=== PATIENT | female | born 1960 | race Caucasian/White ===

== ENCOUNTER 2017-03-04 12:15 | Emergency (ER) | payer OTHER ==
[~2017-03-04] VITALS: Ht 162.6 cm; Wt 141.2 kg
[~2017-03-04 12:15] MED LIST: ACETAMINOPHEN500 MG PO; ALEVE220 MG PO; BENLYSTA120 MG IV; BUPROPION HCL100 MG PO; CYCLOBENZAPRINE10 MG PO; ERGOCALCIF50000 UNIT PO; FLECTOR 1.3%1 PATC1 TD; FLEXERIL10 MG PO; HYDROCODON-ACE1 EAC8 PO; HYDROXYCHLOROQ200 MG PO; LEVOTHYROXINE50 MCG PO; MELOXICAM7.5 MG PO; METHYLPREDNISOLO4 MG PO; NAPROSYN500 MG PO; NAPROXEN500 MG PO; OMEPRAZOLE20 MG PO; OXYCONTIN10 MG PO; SPIRONOLACTONE50 MG PO; TRAMADOL HCL50 MG PO
[2017-03-04 14:36] LABS: EOSINOPHIL (%) 2.8 % (0-5); EOSINOPHIL COUNT 0.3 K/uL (0-0.3); HEMATOCRIT 41.7 % (36.0-46.0); IMMATURE GRANULOCYTE (%) 0.5 % (0.0-0.7); IMMATURE GRANULOCYTE COUNT 0.1 K/uL; INSTRUMENT ABS NEUTROPHIL CT 4.1 K/uL; LYMPHOCYTE COUNT 4.3 K/uL (1.0-2.8); MCH 27.6 PG (29.0-34.0); MCHC 31.7 G/DL (30.0-36.0); MCV 87.1 FL (83-99); MEAN PLAT.VOLUME 10.2 uM^3 (9.5-12.4); MONOCYTE (%) 7.6 % (3-12); MONOCYTE COUNT 0.7 K/uL (0-0.8); NEUTROPHIL (%) 43.7 % (45-76); NEUTROPHIL COUNT 4.1 K/uL (1.8-6.4); PLATELET COUNT 316 K/uL (156-360); RBC DIS.WIDTH-CV 13.8 % (11.8-14.6); RBC DIS.WIDTH-SD 44.2 % (39-53); RED BLOOD COUNT 4.79 M/uL (3.80-5.20); WHITE BLOOD COUNT 9.4 K/uL (4.1-10.2)
[2017-03-04] MEDS ORDERED: TRAZODONE HCL50 MG PO (14:42)
[2017-03-04] MEDS ORDERED: TOPIRAMATE50 MG PO (14:42)
[2017-03-04] MEDS ORDERED: PERCOCET 10/1 TABLET PO (14:43)
[2017-03-04] MEDS ORDERED: ALEVE220 MG PO (14:44)
[2017-03-04 14:47] LABS: CHLORIDE 111 mEq/L (99-109); POTASSIUM 4.3 mEq/L (3.7-5.4); SODIUM 141 mEq/L (136-147)
[2017-03-04 14:49] LABS: GLUCOSE 79 mg/dL (70-99)
[2017-03-04 14:50] LABS: ANION GAP 7 MEQ/L (2-14)
[2017-03-04 14:51] LABS: TOTAL BILIRUBIN 0.7 mg/dL (0.0-1.0)
[2017-03-04 14:52] LABS: ALKALINE PHOSPHATASE 48 IU/L (3-129)
[2017-03-04 14:53] LABS: GFR ESTIMATE (CALCULATED) > 59 mL/min/
[2017-03-04 14:54] LABS: UREA NITROGEN (BUN) 13 mg/dL (9-23)
[2017-03-04 15:07] LABS: C-REACTIVE PROTEIN 14.6 MG/L (0-10)
[2017-03-04 15:54] LABS: ERTH.SED.RATE 24 MM/HR (0-30)
[2017-03-04] MEDS ORDERED: MOTRIN800 MG PO (17:41)
[2017-03-04] MEDS ORDERED: NORCO 10/3251 TABLET PO (17:41)
[2017-03-04] MEDS ORDERED: CEFDINIR300 MG PO (17:41)
[2017-03-04 18:25] VITALS: BP 146/94
[2017-03-05] MEDS ORDERED: AMOXICILLI250 MG/5 M PO (23:22)
[2017-03-06 14:09] LABS: Rickettsia (RMSF) IgG Not Detected (Not Detected); Rickettsia (RMSF) IgM Not Detected (Not Detected)
[2017-03-06 15:12] LABS: Varicella IgM <=0.90 (<=0.90)
== END 2017-03-04 18:27 | disposition home or self-care (01) ==
LOC: EME 12:15
PROVIDERS: Physician Assistant
DX: L30.9 Dermatitis, unspecified (principal); H60.502 Unspecified acute noninfective otitis externa, left ear; H66.92 Otitis media, unspecified, left ear; G62.9 Polyneuropathy, unspecified; M32.9 Systemic lupus erythematosus, unspecified; M79.7 Fibromyalgia; M06.9 Rheumatoid arthritis, unspecified
CPT/HCPCS: 71020; 80053; 81003; 83605; 84443; 85025; 85651; 86140; 86757 90; 86787 90; 87040; 87254; 87254 90; 93005; 99281; 99284; J0133; J1885; J3010; J7030; J7050

== ENCOUNTER 2017-03-05 22:12 | Emergency (ER) | payer OTHER ==
[~2017-03-05] VITALS: Ht 162.6 cm; Wt 144.7 kg
[~2017-03-05 22:12] MED LIST changes: +CEFDINIR300 MG PO; +MOTRIN800 MG PO; +NORCO 10/3251 TABLET PO; +PERCOCET 10/1 TABLET PO; +TOPIRAMATE50 MG PO; +TRAZODONE HCL50 MG PO
[2017-03-05] MEDS ORDERED: AMOXICILLI250 MG/5 M PO (23:22)
[2017-03-06 00:02] VITALS: BP 131/78
== END 2017-03-06 00:05 | disposition home or self-care (01) ==
LOC: EME 22:12
DX: H60.90 Unspecified otitis externa, unspecified ear (principal); J02.8 Acute pharyngitis due to other specified organisms; M32.9 Systemic lupus erythematosus, unspecified
CPT/HCPCS: 99281; 99285

== ENCOUNTER 2017-03-30 12:51 | Day surgery (SDC) | payer OTHER ==
[~2017-03-30] VITALS: Ht 162.6 cm; Wt 136.0 kg
[~2017-03-30 12:51] MED LIST changes: +AMOXICILLI250 MG/5 M PO; +OXYCODONE-APAP1 EAC6 PO
== END 2017-03-30 14:17 | disposition home or self-care (01) ==
LOC: PAIN 12:51 → SDC 13:45 → PAIN 14:17
DX: M47.26 Other spondylosis with radiculopathy, lumbar region (principal); M51.16 Intervertebral disc disorders with radiculopathy, lumbar region; G89.29 Other chronic pain; M48.06 Spinal stenosis, lumbar region; M54.5 Low back pain; M79.7 Fibromyalgia; G62.9 Polyneuropathy, unspecified; E78.5 Hyperlipidemia, unspecified; Z79.891 Long term (current) use of opiate analgesic; E66.01 Morbid (severe) obesity due to excess calories; M32.9 Systemic lupus erythematosus, unspecified; Z79.899 Other long term (current) drug therapy
CPT/HCPCS: J1100; J2250; J3010